=== PATIENT | male | born 1975 | race African-American/Black ===

== ENCOUNTER 2018-01-25 22:25 | Emergency (ER) | payer BC ==
[~2018-01-25] VITALS: Ht 172.7 cm; Wt 131.5 kg
[~2018-01-25 22:25] MED LIST: ASPIRIN325; FLEXERIL PO; IBUPROFEN 800800 M1; LISINOPRIL10 MG; MEDROLDOSEPACK PO; NORCO 5-325 TA1 EACH PO; PRAVASTATIN SOD80 MG; TOPROL XL50 MG; VITAMIN D-32000 UNIT
[2018-01-25] MEDS ORDERED: CHLORTHALIDONE25 MG PO (22:35)
[2018-01-25] MEDS ORDERED: OMEPRAZOLE40 MG PO (22:35)
[2018-01-25] MEDS ORDERED: CARVEDILOL12.5 MG PO (22:35)
[2018-01-25] MEDS ORDERED: CRESTOR20 MG PO (22:36)
[2018-01-25] MEDS ORDERED: ASPIRIN325 PO (22:36)
[2018-01-25] MEDS ORDERED: AMOXICILLIN 50500 MG PO (22:52)
[2018-01-25] MEDS ORDERED: NORCO 5-325 TA1 EACH PO (22:52)
[2018-01-25 23:28] VITALS: BP 133/77
--- NOTE | 2018-01-27 14:56 | EKG ---
[place] [address] ELECTROCARDIOGRAM REPORT Name: DIAZ MAHAJAN Room: [facility]#: [id number] Admission: 01/25/18 Attend Phys: Discharge: 01/25/18 Date of : 77 Report #: [id number] THIS REPORT FOR: //name// [facility] ED Test Date: 2018-01-25 Test Time: 22:48:35 Pat Name: DIAZ MAHAJAN Department: Room: Gender: M [employer]: Luiza CONDE : 1975 Requested By: Janet Burrows Order Number: [id number] MD: Marco Delgado Measurements Intervals [place] Rate: 80 P: 29 [place]: 176 QRS: 23 QRSD: 95 T: 35 QT: 370 QTc: 427 Interpretive Statements Sinus rhythm Abnormal R-wave progression, early transition No previous ECG available for comparison Electronically Signed On 01-27-2018 14:55:44 CDT by Marco Delgado [email or web address] <ELECTRONICALLY SIGNED> By: Marco Delgado MD, [facility] 01/27/18 1455 [id number] Marco eDlgado MD, FACC /EPI
== END 2018-01-25 23:29 | disposition home or self-care (01) ==
LOC: M.ERS 22:25
DX: K02.9 Dental caries, unspecified (principal)